=== PATIENT | male | born 1960 | race African-American/Black ===

== ENCOUNTER 2016-12-02 20:49 | Emergency (ER) | payer MEDICAID ==
[~2016-12-02] VITALS: Ht 167.6 cm; Wt 68.0 kg
[2016-12-02 21:45] LABS: BASOPHILS % 1.1 % (0.0-2.0); EOSINOPHILS % 12.7 % (0.0-5.0); HEMATOCRIT. 29.7 % (42.0-52.0); LYMPHOCYTES % 36.6 % (20.0-50.0); MEAN CORPUSCULAR HEMOGLOBIN 31.3 pg (28.0-32.0); MEAN CORPUSCULAR HGB CONC 33.7 g/dL (31.0-37.0); MEAN CORPUSCULAR VOLUME 92.7 fL (80.0-94.0); MEAN PLATELET VOLUME 7.3 fl (7.4-10.4); MONOCYTES % 7.4 % (2.0-8.0); NEUTROPHILS % 42.2 % (40.0-76.0); PLATELET 271 x1000/uL (130-400); RED CELL DISTRIBUTION WIDTH 21.6 % (11.6-14.6); WHITE BLOOD COUNT 4.1 x1000/uL (4.5-11.0)
[2016-12-02 21:48] LABS: INR 1.2; PROTHROMBIN TIME 12.3 sec
[2016-12-02 21:54] LABS: ACETAMINOPHEN < 2 ug/mL (10-30); ALANINE AMINOTRANSFERASE 24 IU/L (13-61); ALBUMIN 3.5 g/dL (3.4-5.0); ANION GAP 15; CALCIUM 8.6 mg/dL (8.5-10.1); CARBON DIOXIDE 24 mEq/L (21-32); CHLORIDE 102 mEq/L (98-107); ETHANOL BLOOD 194 mg/dL; INDEX HEMOLYSI 1 (1-3); INDEX ICTERIC 1 (1-4); INDEX LIPEMIC 1 (1-3); UREA NITROGEN BLOOD 6 mg/dL (7-21); eGFR > 60 mL/min (>60)
[2016-12-02 22:04] LABS: CLARITY URINE CLEAR (CLEAR); COLOR URINE YELLOW (YELLOW); GLUCOSE URINE NEGATIVE (NEGATIVE); KETONES URINE NEGATIVE (NEGATIVE); LEUKOCYTE ESTERASE URINE NEGATIVE (NEGATIVE); NITRITE URINE NEGATIVE (NEGATIVE); OCCULT BLOOD URINE NEGATIVE (NEGATIVE); PH URINE 5.5 (4.5-8.0); PROTEIN URINE NEGATIVE (NEGATIVE); SPECIFIC GRAVITY URINE 1.006 (1.005-1.030)
[2016-12-02 22:17] LABS: *AMPHETAMINES SCREEN URINE NEGATIVE (NEGATIVE); *BARBITURATES SCREEN URINE NEGATIVE (NEGATIVE); *BENZODIAZEPINES SCREEN URINE NEGATIVE (NEGATIVE); *COCAINE SCREEN URINE NEGATIVE (NEGATIVE); CANNABINOID URINE SCREEN NEGATIVE (NEGATIVE); ECSTASY MDMA SCREEN URINE NEGATIVE (NEGATIVE); METHADONE URINE SCREEN NEGATIVE (NEGATIVE); OPIATES URINE SCREEN NEGATIVE (NEGATIVE); PHENCYCLIDINE URINE SCREEN NEGATIVE (NEGATIVE)
[2016-12-03 02:22] VITALS: BP 120/66
== END 2016-12-03 06:51 | disposition home or self-care (01) ==
LOC: ER 20:49
DX: T51.91XA Toxic effect of unspecified alcohol, accidental (unintentional), initial encounter (principal); I10 Essential (primary) hypertension; Z88.5 Allergy status to narcotic agent; Z88.0 Allergy status to penicillin; Y92.89 Other specified places as the place of occurrence of the external cause
CPT/HCPCS: 36415; 70450; 80053; 80305; 80307; 80329; 81003; 82962; 85025; 85610; 99285; G0482; Z7610

== ENCOUNTER 2017-06-24 07:37 | Emergency (ER) | payer MEDICAID ==
[~2017-06-24] VITALS: Ht 180.3 cm; Wt 80.0 kg
[2017-06-24] MEDS ORDERED: LEVETIRACETAM 500MG PREMIX 100 ML IV ONE (08:15)
[2017-06-24 08:20] LABS: BASOPHILS % 0.7 % (0.0-2.0); EOSINOPHILS % 0.7 % (0.0-5.0); HEMATOCRIT. 36.6 % (42.0-52.0); HEMOGLOBIN. 12.2 g/dL (14.0-18.0); LYMPHOCYTES % 25.3 % (20.0-50.0); MEAN CORPUSCULAR HEMOGLOBIN 32.2 pg (28.0-32.0); MEAN PLATELET VOLUME 7.8 fl (7.4-10.4); MONOCYTES % 2.7 % (2.0-8.0); NEUTROPHILS % 70.6 % (40.0-76.0); PLATELET 116 x1000/uL (130-400); RED BLOOD CELL COUNT 3.77 mill/uL (4.7-6.1)
[2017-06-24 08:27] LABS: CHLORIDE 90 mEq/L (98-107)
[2017-06-24 08:36] LABS: ETHANOL BLOOD 12 mg/dL
[2017-06-24 08:37] LABS: CARBON DIOXIDE 7 mEq/L (21-32)
[2017-06-24 08:38] LABS: AMMONIA 236 uMol/L (<32)
[2017-06-24 09:01] LABS: CLARITY URINE CLEAR (CLEAR); COLOR URINE YELLOW (YELLOW); GLUCOSE URINE NEGATIVE (NEGATIVE); KETONES URINE NEGATIVE (NEGATIVE); LEUKOCYTE ESTERASE URINE NEGATIVE (NEGATIVE); NITRITE URINE NEGATIVE (NEGATIVE); OCCULT BLOOD URINE 1+ (NEGATIVE); PROTEIN URINE 1+ (NEGATIVE); SPECIFIC GRAVITY URINE 1.015 (1.005-1.030)
[2017-06-24 09:20] LABS: *AMPHETAMINES SCREEN URINE NEGATIVE (NEGATIVE); *BARBITURATES SCREEN URINE NEGATIVE (NEGATIVE); *BENZODIAZEPINES SCREEN URINE NEGATIVE (NEGATIVE); *COCAINE SCREEN URINE NEGATIVE (NEGATIVE); CANNABINOID URINE SCREEN NEGATIVE (NEGATIVE); METHADONE URINE SCREEN NEGATIVE (NEGATIVE); OPIATES URINE SCREEN NEGATIVE (NEGATIVE); PHENCYCLIDINE URINE SCREEN NEGATIVE (NEGATIVE)
[2017-06-24] MEDS ORDERED: POTASSIUM CHLORIDE 20MEQ TABLET SR PO ONE (09:45)
[2017-06-24 14:15] VITALS: BP 139/93
== END 2017-06-24 14:25 | disposition home or self-care (01) ==
LOC: ER 07:50
DX: G40.909 Epilepsy, unspecified, not intractable, without status epilepticus (principal); K74.60 Unspecified cirrhosis of liver; I10 Essential (primary) hypertension; Z88.0 Allergy status to penicillin; Z88.6 Allergy status to analgesic agent; Z98.890 Other specified postprocedural states
CPT/HCPCS: 36415; 76705; 80053; 80305; 81001; 82140; 85025; 93005; 96365; 99285; G0482; J1953; Z7610

== ENCOUNTER 2017-08-06 19:54 | Emergency (ER) | payer MEDICAID, OTHER ==
[~2017-08-06] VITALS: Ht 172.7 cm; Wt 72.0 kg
[2017-08-06] MEDS ORDERED: LEVETIRACETAM 1,000 MG in SODIUM CHLORIDE 0.9% 100 ML IV ONE (23:00)
[2017-08-06 23:08] LABS: BASOPHILS % 1.7 % (0.0-2.0); EOSINOPHILS % 4.9 % (0.0-5.0); HEMATOCRIT. 28.4 % (42.0-52.0); HEMOGLOBIN. 9.5 g/dL (14.0-18.0); LYMPHOCYTES % 37.6 % (20.0-50.0); MEAN CORPUSCULAR HEMOGLOBIN 29.3 pg (28.0-32.0); MEAN CORPUSCULAR VOLUME 87.8 fL (80.0-94.0); MEAN PLATELET VOLUME 6.7 fl (7.4-10.4); NEUTROPHILS % 48.8 % (40.0-76.0); PLATELET 458 x1000/uL (130-400); RED BLOOD CELL COUNT 3.24 mill/uL (4.7-6.1); RED CELL DISTRIBUTION WIDTH 19.5 % (11.6-14.6)
[2017-08-06 23:30] LABS: CARBON DIOXIDE 25 mEq/L (21-32); CHLORIDE 102 mEq/L (98-107); ETHANOL BLOOD 277 mg/dL
[2017-08-06 23:32] LABS: CARBAMAZEPINE < 0.5 ug/mL (4-12); VALPROIC ACID < 3.0 ug/mL (50-100)
[2017-08-06 23:43] LABS: CLARITY URINE CLEAR (CLEAR); COLOR URINE YELLOW (YELLOW); KETONES URINE NEGATIVE (NEGATIVE); LEUKOCYTE ESTERASE URINE NEGATIVE (NEGATIVE); NITRITE URINE NEGATIVE (NEGATIVE); OCCULT BLOOD URINE NEGATIVE (NEGATIVE); PH URINE 5.5 (4.5-8.0); PROTEIN URINE NEGATIVE (NEGATIVE); SPECIFIC GRAVITY URINE 1.008 (1.005-1.030); UROBILINOGEN URINE 0.2 E.U./dL (0.2-1.0)
[2017-08-06 23:53] LABS: *AMPHETAMINES SCREEN URINE NEGATIVE (NEGATIVE); *BARBITURATES SCREEN URINE NEGATIVE (NEGATIVE); *BENZODIAZEPINES SCREEN URINE NEGATIVE (NEGATIVE); *COCAINE SCREEN URINE NEGATIVE (NEGATIVE); CANNABINOID URINE SCREEN NEGATIVE (NEGATIVE); METHADONE URINE SCREEN NEGATIVE (NEGATIVE); OPIATES URINE SCREEN NEGATIVE (NEGATIVE); PHENCYCLIDINE URINE SCREEN NEGATIVE (NEGATIVE)
[2017-08-07] MEDS ORDERED: TETANUS, DIPHTHERIA, PERTUSSIS VAC/PF 0.5ML (>7YR OLD) IM ONE (00:45)
[2017-08-07 02:02] VITALS: BP 100/61
== END 2017-08-07 02:04 | disposition home or self-care (01) ==
LOC: ER 20:25 → CANBEDREQ 08-07 06:34
DX: S00.511A Abrasion of lip, initial encounter (principal); F10.129 Alcohol abuse with intoxication, unspecified; H57.8 Other specified disorders of eye and adnexa; I10 Essential (primary) hypertension; R56.9 Unspecified convulsions; R07.9 Chest pain, unspecified; E05.90 Thyrotoxicosis, unspecified without thyrotoxic crisis or storm; Z88.0 Allergy status to penicillin; Z88.5 Allergy status to narcotic agent; Z91.14 Patient's other noncompliance with medication regimen; Z98.890 Other specified postprocedural states; X58.XXXA Exposure to other specified factors, initial encounter; Y93.89 Activity, other specified; Y92.89 Other specified places as the place of occurrence of the external cause; Y99.8 Other external cause status
CPT/HCPCS: 36415; 70450; 71020; 72125; 80053; 80156; 80165; 80185; 80305; 81003; 82542; 82962; 84443; 85025; 96365; 99285; G0482; J1953; Z7610; J7050

== ENCOUNTER 2017-11-25 11:15 | Emergency (ER) | payer OTHER ==
[~2017-11-25] VITALS: Ht 172.7 cm; Wt 64.0 kg
[2017-11-25] MEDS ORDERED: SODIUM CHLORIDE 0.9% 1,000 ML IV ONE ×2 (12:01→14:07)
[2017-11-25 13:07] LABS: CHLORIDE 99 mEq/L (98-107)
[2017-11-25 13:08] LABS: HEMOGLOBIN. 9.2 g/dL (14.0-18.0); MEAN CORPUSCULAR HEMOGLOBIN 33.9 pg (28.0-32.0); MEAN CORPUSCULAR VOLUME 102.8 fL (80.0-94.0); MEAN PLATELET VOLUME 8.9 fl (7.4-10.4); PLATELET 146 x1000/uL (130-400); RED BLOOD CELL COUNT 2.72 mill/uL (4.7-6.1); RED CELL DISTRIBUTION WIDTH 17.4 % (11.6-14.6)
[2017-11-25 13:09] LABS: INR 1.6; PROTHROMBIN TIME 16.9 sec (9.4-11.6)
[2017-11-25 13:51] LABS: PLATELET ESTIMATE NORMAL
[2017-11-25] MEDS ORDERED: POTASSIUM CHLORIDE 20MEQ TABLET SR PO NR (13:55)
[2017-11-25 18:11] VITALS: BP 115/82
== END 2017-11-25 18:16 | disposition home or self-care (01) ==
LOC: ER 11:29
DX: S01.81XA Laceration without foreign body of other part of head, initial encounter (principal); R55 Syncope and collapse; E86.0 Dehydration; I10 Essential (primary) hypertension; R56.9 Unspecified convulsions; D72.819 Decreased white blood cell count, unspecified; D53.9 Nutritional anemia, unspecified; Z88.0 Allergy status to penicillin; Z88.5 Allergy status to narcotic agent; X58.XXXA Exposure to other specified factors, initial encounter; Y93.89 Activity, other specified; Y92.89 Other specified places as the place of occurrence of the external cause; Y99.8 Other external cause status
CPT/HCPCS: 36415; 70450; 71045; 80053; 84484; 85025; 85610; 93005; 96360; 96361; 99285; J7030

== ENCOUNTER 2018-02-17 23:53 | Emergency (ER) | payer OTHER ==
[~2018-02-17] VITALS: Ht 175.3 cm; Wt 66.0 kg
[2018-02-18 02:16] LABS: EOSINOPHILS % 3.6 % (0.0-5.0); HEMATOCRIT. 29.3 % (42.0-52.0); HEMOGLOBIN. 10.1 g/dL (14.0-18.0); LYMPHOCYTES % 45.2 % (20.0-50.0); MEAN CORPUSCULAR HEMOGLOBIN 32.8 pg (28.0-32.0); MEAN CORPUSCULAR VOLUME 95.1 fL (80.0-94.0); MONOCYTES % 7.8 % (2.0-8.0); NEUTROPHILS % 42.4 % (40.0-76.0); PLATELET 158 x1000/uL (130-400); RED BLOOD CELL COUNT 3.08 mill/uL (4.7-6.1)
[2018-02-18 02:20] LABS: INR 1.3; PROTHROMBIN TIME 13.4 sec (9.4-11.6)
[2018-02-18 02:29] LABS: CHLORIDE 102 mEq/L (98-107)
[2018-02-18 02:49] LABS: ETHANOL BLOOD 356 mg/dL
[2018-02-18] MEDS ORDERED: CHLORDIAZEPOXIDE 25MG CAPSULE PO ONE (05:30)
[2018-02-18 05:56] VITALS: BP 124/68
== END 2018-02-18 05:58 | disposition home or self-care (01) ==
LOC: ER 23:53
DX: S09.8XXA Other specified injuries of head, initial encounter (principal); T51.91XA Toxic effect of unspecified alcohol, accidental (unintentional), initial encounter; I10 Essential (primary) hypertension; R56.9 Unspecified convulsions; W01.0XXA Fall on same level from slipping, tripping and stumbling without subsequent striking against object, initial encounter; Y93.9 Activity, unspecified; Y92.9 Unspecified place or not applicable; Z88.5 Allergy status to narcotic agent; Z88.0 Allergy status to penicillin
CPT/HCPCS: 36415; 70450; 80053; 85025; 85610; 99285; G0482

== ENCOUNTER 2018-03-12 01:39 | Emergency (ER) | payer OTHER ==
[~2018-03-12] VITALS: Ht 177.8 cm; Wt 68.2 kg
[2018-03-12] MEDS ORDERED: SODIUM CHLORIDE 0.9% 1,000 ML IV ONE (03:22)
[2018-03-12] MEDS ORDERED: ONDANSETRON HCL 4MG/2ML VIAL IV STA (03:22)
[2018-03-12] MEDS ORDERED: LEVETIRACETAM 500MG PREMIX 100 ML IV ONE (03:30)
[2018-03-12 03:50] LABS: BASOPHILS % 2.2 % (0.0-2.0); EOSINOPHILS % 3.3 % (0.0-5.0); HEMATOCRIT. 35.1 % (42.0-52.0); HEMOGLOBIN. 12.1 g/dL (14.0-18.0); LYMPHOCYTES % 48.4 % (20.0-50.0); MEAN CORPUSCULAR HEMOGLOBIN 32.7 pg (28.0-32.0); MEAN CORPUSCULAR VOLUME 94.8 fL (80.0-94.0); MEAN PLATELET VOLUME 7.2 fl (7.4-10.4); NEUTROPHILS % 39.1 % (40.0-76.0); PLATELET 319 x1000/uL (130-400); RED CELL DISTRIBUTION WIDTH 15.4 % (11.6-14.6)
[2018-03-12 03:54] LABS: CHLORIDE 105 mEq/L (98-107); INR 1.2; PROTHROMBIN TIME 12.4 sec (9.4-11.6)
[2018-03-12 03:59] LABS: AMMONIA 49 uMol/L (<32)
[2018-03-12 04:16] LABS: CARBAMAZEPINE < 0.5 ug/mL (4-12); PHENOBARBITAL < 2.1 ug/mL (15.0-40.0); VALPROIC ACID < 3.0 ug/mL (50-100)
[2018-03-12 04:18] LABS: CLARITY URINE CLEAR (CLEAR); COLOR URINE YELLOW (YELLOW); KETONES URINE NEGATIVE (NEGATIVE); LEUKOCYTE ESTERASE URINE NEGATIVE (NEGATIVE); NITRITE URINE NEGATIVE (NEGATIVE); OCCULT BLOOD URINE NEGATIVE (NEGATIVE); PROTEIN URINE NEGATIVE (NEGATIVE); SPECIFIC GRAVITY URINE 1.004 (1.005-1.030); UROBILINOGEN URINE 0.2 E.U./dL (0.2-1.0)
[2018-03-12 04:19] LABS: ETHANOL BLOOD 400 mg/dL
[2018-03-12 04:43] LABS: *AMPHETAMINES SCREEN URINE NEGATIVE (NEGATIVE); *COCAINE SCREEN URINE NEGATIVE (NEGATIVE); CANNABINOID URINE SCREEN NEGATIVE (NEGATIVE); METHADONE URINE SCREEN NEGATIVE (NEGATIVE); OPIATES URINE SCREEN NEGATIVE (NEGATIVE); PHENCYCLIDINE URINE SCREEN NEGATIVE (NEGATIVE)
[2018-03-12 04:45] LABS: *BARBITURATES SCREEN URINE NEGATIVE (NEGATIVE); *BENZODIAZEPINES SCREEN URINE NEGATIVE (NEGATIVE)
[2018-03-12 10:40] VITALS: BP 111/78
== END 2018-03-12 13:38 | disposition home or self-care (01) ==
LOC: ER 01:39
DX: G92 Toxic encephalopathy (principal); T51.0X1A Toxic effect of ethanol, accidental (unintentional), initial encounter; I10 Essential (primary) hypertension; Z88.6 Allergy status to analgesic agent; Z88.0 Allergy status to penicillin; Y90.8 Blood alcohol level of 240 mg/100 ml or more; Y92.89 Other specified places as the place of occurrence of the external cause
CPT/HCPCS: 36415; 73502; 80053; 80156; 80165; 80184; 80185; 80305; 81003; 82140; 84443; 84484; 85025; 85610; 93005; 96365; 96375; 99285; G0482; J1953; J2405; J7030; Z7610

== ENCOUNTER 2018-03-13 16:59 | Emergency (ER) | payer OTHER ==
[~2018-03-13] VITALS: Ht 182.9 cm; Wt 68.2 kg
[2018-03-13] MEDS ORDERED: ACETAMINOPHEN 325MG TABLET PO ONE (18:45)
[2018-03-13 18:55] VITALS: BP 108/70
== END 2018-03-13 19:07 | disposition home or self-care (01) ==
LOC: ER 16:59
DX: S39.012A Strain of muscle, fascia and tendon of lower back, initial encounter (principal); I10 Essential (primary) hypertension; G40.909 Epilepsy, unspecified, not intractable, without status epilepticus; F10.129 Alcohol abuse with intoxication, unspecified; Y90.9 Presence of alcohol in blood, level not specified; Z88.0 Allergy status to penicillin; Z88.5 Allergy status to narcotic agent; W01.0XXA Fall on same level from slipping, tripping and stumbling without subsequent striking against object, initial encounter; Y93.89 Activity, other specified; Y92.018 Other place in single-family (private) house as the place of occurrence of the external cause
CPT/HCPCS: 99283

== ENCOUNTER 2018-05-15 00:37 | Emergency (ER) | payer MEDICAID, OTHER ==
[~2018-05-15] VITALS: Ht 172.7 cm; Wt 68.0 kg
[2018-05-15] MEDS ORDERED: ONDANSETRON HCL 4MG/2ML INJ IV STA (01:50)
[2018-05-15] MEDS ORDERED: SODIUM CHLORIDE 0.9% 1,000 ML IV ONE (01:50)
[2018-05-15] MEDS ORDERED: LORAZEPAM 2MG/ML CPJ IV ONE (02:00)
[2018-05-15] MEDS ORDERED: LEVETIRACETAM 500MG PREMIX 100 ML IV ONE (02:00)
[2018-05-15 03:18] LABS: BASOPHILS % 2.2 % (0.0-2.0); EOSINOPHILS % 1.5 % (0.0-5.0); HEMATOCRIT. 33.9 % (42.0-52.0); HEMOGLOBIN. 11.8 g/dL (14.0-18.0); LYMPHOCYTES % 48.3 % (20.0-50.0); MEAN CORPUSCULAR HEMOGLOBIN 32.8 pg (28.0-32.0); MEAN CORPUSCULAR VOLUME 94.6 fL (80.0-94.0); MEAN PLATELET VOLUME 7.2 fl (7.4-10.4); MONOCYTES % 8.1 % (2.0-8.0); NEUTROPHILS % 39.9 % (40.0-76.0); PLATELET 228 x1000/uL (130-400); RED BLOOD CELL COUNT 3.59 mill/uL (4.7-6.1); RED CELL DISTRIBUTION WIDTH 13.9 % (11.6-14.6)
[2018-05-15 03:24] LABS: *AMPHETAMINES SCREEN URINE NEGATIVE (NEGATIVE); *BARBITURATES SCREEN URINE NEGATIVE (NEGATIVE); *BENZODIAZEPINES SCREEN URINE NEGATIVE (NEGATIVE); CANNABINOID URINE SCREEN NEGATIVE (NEGATIVE); METHADONE URINE SCREEN NEGATIVE (NEGATIVE); OPIATES URINE SCREEN NEGATIVE (NEGATIVE); PHENCYCLIDINE URINE SCREEN NEGATIVE (NEGATIVE)
[2018-05-15 03:25] LABS: *COCAINE SCREEN URINE NEGATIVE (NEGATIVE)
[2018-05-15 03:27] LABS: CHLORIDE 104 mEq/L (98-107)
[2018-05-15 03:31] LABS: ETHANOL BLOOD 298 mg/dL
[2018-05-15] MEDS ORDERED: PHENYTOIN SODIUM 500 MG in SODIUM CHLORIDE 0.9% 50 ML IV ONE (04:15)
[2018-05-15 12:00] VITALS: BP 118/85
== END 2018-05-15 12:41 | disposition home or self-care (01) ==
LOC: ER 00:37
DX: G40.909 Epilepsy, unspecified, not intractable, without status epilepticus (principal); F10.129 Alcohol abuse with intoxication, unspecified; I10 Essential (primary) hypertension; F17.200 Nicotine dependence, unspecified, uncomplicated; R94.31 Abnormal electrocardiogram [ECG] [EKG]; Z88.0 Allergy status to penicillin; Z88.5 Allergy status to narcotic agent; Y90.8 Blood alcohol level of 240 mg/100 ml or more
CPT/HCPCS: 36415; 70450; 71045; 80053; 80185; 80305; 85025; 93005; 96365; 96367; 96375; 99285; G0482; J1165; J1953; J2060; J2405; J7030; Z7610

== ENCOUNTER 2018-12-14 09:14 | Emergency (ER) | payer MEDICAID, OTHER ==
[~2018-12-14] VITALS: Ht 177.8 cm; Wt 56.0 kg
[2018-12-14] MEDS ORDERED: LEVETIRACETAM 1000MG/100ML 100 ML IV ONE (10:00)
[2018-12-14 10:06] LABS: BASOPHILS % 0.8 % (0.0-2.0); EOSINOPHILS % 0.4 % (0.0-5.0); HEMATOCRIT. 36.6 % (42.0-52.0); HEMOGLOBIN. 12.4 g/dL (14.0-18.0); LYMPHOCYTES % 27.3 % (20.0-50.0); MEAN CORPUSCULAR HEMOGLOBIN 31.9 pg (28.0-32.0); MEAN CORPUSCULAR VOLUME 93.8 fL (80.0-94.0); MEAN PLATELET VOLUME 7.9 fl (7.4-10.4); MONOCYTES % 4.8 % (2.0-8.0); NEUTROPHILS % 66.7 % (40.0-76.0); PLATELET 137 x1000/uL (130-400); RED CELL DISTRIBUTION WIDTH 15.6 % (11.6-14.6)
[2018-12-14 10:11] LABS: CHLORIDE 96 mEq/L (98-107)
[2018-12-14 10:15] LABS: ETHANOL BLOOD < 10 mg/dL
[2018-12-14 13:20] VITALS: BP 135/82
[2018-12-14 15:38] LABS: CLARITY URINE CLEAR (CLEAR); COLOR URINE YELLOW (YELLOW); KETONES URINE 3+ (NEGATIVE); LEUKOCYTE ESTERASE URINE TRACE (NEGATIVE); NITRITE URINE NEGATIVE (NEGATIVE); OCCULT BLOOD URINE 1+ (NEGATIVE); PROTEIN URINE 1+ (NEGATIVE); SPECIFIC GRAVITY URINE 1.023 (1.005-1.030); UROBILINOGEN URINE 0.2 E.U./dL (0.2-1.0)
[2018-12-14 15:49] LABS: *AMPHETAMINES SCREEN URINE NEGATIVE (NEGATIVE); *BARBITURATES SCREEN URINE NEGATIVE (NEGATIVE); *COCAINE SCREEN URINE PRESUMTIVE POSITIVE (NEGATIVE); CANNABINOID URINE SCREEN NEGATIVE (NEGATIVE); METHADONE URINE SCREEN NEGATIVE (NEGATIVE); OPIATES URINE SCREEN NEGATIVE (NEGATIVE); PHENCYCLIDINE URINE SCREEN NEGATIVE (NEGATIVE)
[2018-12-14 15:51] LABS: *BENZODIAZEPINES SCREEN URINE NEGATIVE (NEGATIVE)
== END 2018-12-14 13:45 | disposition home or self-care (01) ==
LOC: ER 09:14
DX: S00.511A Abrasion of lip, initial encounter (principal); R56.9 Unspecified convulsions; I10 Essential (primary) hypertension; Z98.890 Other specified postprocedural states; Z88.6 Allergy status to analgesic agent; X58.XXXA Exposure to other specified factors, initial encounter; Y93.89 Activity, other specified; Y92.89 Other specified places as the place of occurrence of the external cause; Y99.8 Other external cause status
CPT/HCPCS: 36415; 71045; 80053; 80305; 80320; 81003; 85025; 96365; 99284; J1953; G0480

== ENCOUNTER 2019-11-09 20:52 | Emergency (ER) | payer MEDICAID ==
[~2019-11-09] VITALS: Ht 172.7 cm; Wt 68.0 kg
[2019-11-09] MEDS ORDERED: SODIUM CHLORIDE 0.9% 1,000 ML IV ONE (21:22)
[2019-11-09] MEDS ORDERED: LEVETIRACETAM 500MG PREMIX 100 ML IV ONE (21:30)
[2019-11-09 21:58] LABS: BASOPHILS % 0.4 % (0.0-2.0); EOSINOPHILS % 0.7 % (0.0-5.0); HEMATOCRIT. 33.5 % (42.0-52.0); HEMOGLOBIN. 11.8 g/dL (14.0-18.0); LYMPHOCYTES % 24.5 % (20.0-50.0); MEAN CORPUSCULAR HEMOGLOBIN 32.8 pg (28.0-32.0); MEAN CORPUSCULAR VOLUME 93.2 fL (80.0-94.0); MEAN PLATELET VOLUME 8.8 fl (7.4-10.4); MONOCYTES % 3.1 % (2.0-8.0); NEUTROPHILS % 71.3 % (40.0-76.0); PLATELET 83 x1000/uL (130-400); RED BLOOD CELL COUNT 3.59 mill/uL (4.7-6.1); RED CELL DISTRIBUTION WIDTH 16.2 % (11.6-14.6)
[2019-11-09 22:00] LABS: CHLORIDE 99 mEq/L (98-107)
[2019-11-09 22:04] LABS: ETHANOL BLOOD < 10 mg/dL
[2019-11-09 22:14] LABS: CARBAMAZEPINE < 0.5 ug/mL (4-12); PHENOBARBITAL < 2.1 ug/mL (15.0-40.0); VALPROIC ACID < 3.0 ug/mL (50-100)
[2019-11-09] MEDS ORDERED: ONDANSETRON 4MG ODT PO ONE (22:45)
[2019-11-10 01:33] LABS: CLARITY URINE CLEAR (CLEAR); COLOR URINE YELLOW (YELLOW); KETONES URINE TRACE (NEGATIVE); LEUKOCYTE ESTERASE URINE NEGATIVE (NEGATIVE); NITRITE URINE NEGATIVE (NEGATIVE); OCCULT BLOOD URINE 1+ (NEGATIVE); PROTEIN URINE 2+ (NEGATIVE); SPECIFIC GRAVITY URINE 1.021 (1.005-1.030)
[2019-11-10 01:44] LABS: *AMPHETAMINES SCREEN URINE NEGATIVE (NEGATIVE); *BARBITURATES SCREEN URINE NEGATIVE (NEGATIVE); *BENZODIAZEPINES SCREEN URINE NEGATIVE (NEGATIVE)
[2019-11-10 01:45] LABS: *COCAINE SCREEN URINE NEGATIVE (NEGATIVE); CANNABINOID URINE SCREEN NEGATIVE (NEGATIVE); METHADONE URINE SCREEN NEGATIVE (NEGATIVE); OPIATES URINE SCREEN NEGATIVE (NEGATIVE); PHENCYCLIDINE URINE SCREEN NEGATIVE (NEGATIVE)
[2019-11-10 04:18] VITALS: BP 128/74
== END 2019-11-10 04:20 | disposition home or self-care (01) ==
LOC: ER 20:52
DX: G40.909 Epilepsy, unspecified, not intractable, without status epilepticus (principal); I10 Essential (primary) hypertension; Z91.14 Patient's other noncompliance with medication regimen; Z88.5 Allergy status to narcotic agent; Z88.0 Allergy status to penicillin
CPT/HCPCS: 36415; 70450; 71045; 80053; 80156; 80165; 80184; 80185; 80305; 80320; 81003; 82140; 82962; 84443; 85025; 93005; 96365; 99285; J1953; J7030; Q0162; G0480

== ENCOUNTER 2020-01-03 12:11 | Emergency (ER) | payer MEDICAID ==
[~2020-01-03] VITALS: Ht 172.7 cm; Wt 70.0 kg
[2020-01-03 12:14] VITALS: BP 114/87
== END 2020-01-03 13:20 | disposition left against medical advice (07) ==
LOC: ER 12:11
DX: Z53.21 Procedure and treatment not carried out due to patient leaving prior to being seen by health care provider (principal)
CPT/HCPCS: 99283

== ENCOUNTER 2020-01-03 13:47 | Inpatient (IN) | payer MEDICAID ==
[~2020-01-03] VITALS: Ht 177.8 cm; Wt 58.5 kg
[2020-01-03] MEDS ORDERED: LEVETIRACETAM 500MG PREMIX 100 ML IV ONE (14:45)
[2020-01-03 15:47] LABS: CHLORIDE 102 mEq/L (98-107)
[2020-01-03 15:48] LABS: HEMATOCRIT. 30.3 % (42.0-52.0); HEMOGLOBIN. 9.9 g/dL (14.0-18.0); MEAN CORPUSCULAR HEMOGLOBIN 32.4 pg (28.0-32.0); MEAN CORPUSCULAR VOLUME 98.7 fL (80.0-94.0); PLATELET 161 x1000/uL (130-400); RED BLOOD CELL COUNT 3.07 mill/uL (4.7-6.1); RED CELL DISTRIBUTION WIDTH 17.6 % (11.6-14.6)
[2020-01-03 15:53] LABS: ETHANOL BLOOD 280 mg/dL
[2020-01-03 16:30] LABS: PLATELET ESTIMATE NORMAL
[2020-01-03] MEDS ORDERED: PIPERACILLIN/TAZ 3.375G PREMIX 50 ML IV ONE (18:15)
[2020-01-03 19:26] LABS: CLARITY URINE CLEAR (CLEAR); COLOR URINE DARK YELLOW (YELLOW); KETONES URINE NEGATIVE (NEGATIVE); LEUKOCYTE ESTERASE URINE NEGATIVE (NEGATIVE); NITRITE URINE NEGATIVE (NEGATIVE); OCCULT BLOOD URINE NEGATIVE (NEGATIVE); PH URINE 5.5 (4.5-8.0); PROTEIN URINE NEGATIVE (NEGATIVE); SPECIFIC GRAVITY URINE 1.014 (1.005-1.030)
[2020-01-03 19:43] LABS: *AMPHETAMINES SCREEN URINE NEGATIVE (NEGATIVE); *BARBITURATES SCREEN URINE NEGATIVE (NEGATIVE); *BENZODIAZEPINES SCREEN URINE NEGATIVE (NEGATIVE); *COCAINE SCREEN URINE NEGATIVE (NEGATIVE); METHADONE URINE SCREEN NEGATIVE (NEGATIVE)
[2020-01-03 19:45] LABS: CANNABINOID URINE SCREEN NEGATIVE (NEGATIVE); OPIATES URINE SCREEN NEGATIVE (NEGATIVE); PHENCYCLIDINE URINE SCREEN NEGATIVE (NEGATIVE)
[2020-01-03] MEDS ORDERED: ONDANSETRON HCL 4MG/2ML INJ IV PRN (20:30)
[2020-01-03] MEDS ORDERED: LORAZEPAM 2MG/ML CPJ IV PRN (20:30)
[2020-01-03 21:09] LABS: INR 1.5; PROTHROMBIN TIME 16.6 sec (9.6-11.0)
[2020-01-03] MEDS ORDERED: POTASSIUM CHLORIDE 20MEQ TABLET SR PO SCH (21:20)
[2020-01-03 21:31] LABS: HEPATITIS B SURFACE ANTIGEN NEGATIVE
[2020-01-03 22:01] LABS: HEPATITIS A AB IGM NEGATIVE (NEGATIVE)
[2020-01-03 22:30] VITALS: BP 122/85
[2020-01-03] MEDS ORDERED: ACETAMINOPHEN 325MG TABLET PO PRN (22:30)
[2020-01-03] MEDS: CHLORDIAZEPOXIDE 25MG CAPSULE PO SCH (22:37)
[2020-01-03] MEDS ORDERED: FOLIC ACID 1 MG, THIAMINE HCL 100 MG, MVI, ADULT NO.1 10 ML in DEXTROSE 5% WATER 1,000 ML IV SCH ×4 (23:00)
[2020-01-04] VITALS: BP 109/76
[2020-01-04 04:00] VITALS: BP 119/81
[2020-01-04] MEDS: CHLORDIAZEPOXIDE 25MG CAPSULE PO SCH ×3 (05:46→21:00)
[2020-01-04 06:41] LABS: CHLORIDE 98 mEq/L (98-107)
[2020-01-04 08:00] VITALS: BP 122/88
[2020-01-04 12:00] VITALS: BP 112/82
[2020-01-04] MEDS: CEFEPIME 1,000 MG in DEXTROSE 5% WATER 50 ML IV SCH ×2 (15:09→20:45)
[2020-01-04 16:00] VITALS: BP 126/83
[2020-01-04] MEDS: METRONIDAZOLE 500 MG PREMIX 100 ML IV SCH ×2 (17:08→21:03)
[2020-01-04 20:00] VITALS: BP 106/79
[2020-01-04] MEDS: FOLIC ACID 1 MG, THIAMINE HCL 100 MG, MVI, ADULT NO.1 10 ML in DEXTROSE 5% WATER 1,000 ML IV SCH ×4 (21:19)
[2020-01-05] VITALS: BP 119/76
[2020-01-05 04:00] VITALS: BP 110/77
[2020-01-05] MEDS: CHLORDIAZEPOXIDE 25MG CAPSULE PO SCH ×3 (05:24→22:52)
[2020-01-05] MEDS: METRONIDAZOLE 500 MG PREMIX 100 ML IV SCH ×3 (05:24→22:53)
[2020-01-05 07:05] LABS: HEMATOCRIT 25.7 % (42.0-52.0); HEMOGLOBIN 8.7 g/dL (14.0-18.0); MEAN CORPUSCULAR HEMOGLOBIN 33.9 pg (28.0-32.0); MEAN CORPUSCULAR VOLUME 100.2 fL (80.0-94.0); PLATELET 106 x1000/uL (130-400); RED BLOOD CELL COUNT 2.57 mill/uL (4.7-6.1)
[2020-01-05 07:33] LABS: CHLORIDE 94 mEq/L (98-107)
[2020-01-05 07:39] LABS: TOTAL IRON BINDING CAPACITY 188 ug/dL (250-450)
[2020-01-05 07:50] LABS: FOLIC ACID (FOLATE) SERUM >20 ng/mL ng/mL (>5.38)
[2020-01-05 08:00] VITALS: BP 101/71
[2020-01-05 08:00] LABS: VITAMIN B12 SERUM 1184 pg/mL (211-911)
[2020-01-05 08:17] LABS: FERRITIN 3037 ng/mL (22-322)
[2020-01-05] MEDS ORDERED: POTASSIUM CHLORIDE 20MEQ TABLET SR PO NR (08:30)
[2020-01-05] MEDS: CEFEPIME 1,000 MG in DEXTROSE 5% WATER 50 ML IV SCH ×2 (08:31→22:52)
[2020-01-05] MEDS ORDERED: THIA100T88 MT (08:41)
[2020-01-05] MEDS ORDERED: LACT10SO7 MT (08:41)
[2020-01-05] MEDS ORDERED: LEVO500T2 MT (08:41)
[2020-01-05] MEDS ORDERED: FOLI-43 MT (08:41)
[2020-01-05 12:00] VITALS: BP 94/65
[2020-01-05 16:00] VITALS: BP 100/71
[2020-01-05] MEDS: LACTULOSE 20G/30ML UDC PO SCH (18:17)
[2020-01-05 20:00] VITALS: BP 100/76
[2020-01-06] VITALS: BP 93/64
[2020-01-06] MEDS: FOLIC ACID 1 MG, THIAMINE HCL 100 MG, MVI, ADULT NO.1 10 ML in DEXTROSE 5% WATER 1,000 ML IV SCH ×4 (01:22)
[2020-01-06 04:00] VITALS: BP 112/79
[2020-01-06] MEDS: CHLORDIAZEPOXIDE 25MG CAPSULE PO SCH (06:12)
[2020-01-06] MEDS: METRONIDAZOLE 500 MG PREMIX 100 ML IV SCH ×2 (06:12→14:23)
[2020-01-06 08:00] VITALS: BP 89/58
[2020-01-06] MEDS: CEFEPIME 1,000 MG in DEXTROSE 5% WATER 50 ML IV SCH (08:59)
[2020-01-06 12:00] VITALS: BP 87/65
[2020-01-06 16:00] VITALS: BP 98/71
[2020-01-06 16:45] LABS: HEMATOCRIT. 22.7 % (42.0-52.0); HEMOGLOBIN. 7.9 g/dL (14.0-18.0); MEAN CORPUSCULAR HEMOGLOBIN 34.8 pg (28.0-32.0); MEAN PLATELET VOLUME 9.4 fl (7.4-10.4); PLATELET 104 x1000/uL (130-400); RED BLOOD CELL COUNT 2.27 mill/uL (4.7-6.1); RED CELL DISTRIBUTION WIDTH 17.3 % (11.6-14.6)
[2020-01-06 16:51] LABS: CHLORIDE 100 mEq/L (98-107)
[2020-01-06] MEDS ORDERED: POTASSIUM CHLORIDE 20MEQ TABLET SR PO NR (17:13)
[2020-01-06 17:35] LABS: PLATELET ESTIMATE SLIGHTLY DECREASED
[2020-01-06] MEDS ORDERED: MAGNESIUM 4 G PREMIX 100 ML IV NR (18:00)
[2020-01-06] MEDS: LACTULOSE 20G/30ML UDC PO SCH (18:11)
[2020-01-06 20:00] VITALS: BP 107/75
[2020-01-07] VITALS: BP 102/73
[2020-01-07] MEDS: CEFEPIME 1,000 MG in DEXTROSE 5% WATER 50 ML IV SCH ×3 (01:26→21:15)
[2020-01-07] MEDS: METRONIDAZOLE 500 MG PREMIX 100 ML IV SCH ×4 (01:27→22:05)
[2020-01-07 04:00] VITALS: BP 119/79
[2020-01-07 06:48] LABS: HEMOGLOBIN. 7.9 g/dL (14.0-18.0); MEAN CORPUSCULAR HEMOGLOBIN 34.2 pg (28.0-32.0); MEAN CORPUSCULAR VOLUME 99.8 fL (80.0-94.0); MEAN PLATELET VOLUME 9.8 fl (7.4-10.4); PLATELET 118 x1000/uL (130-400); RED BLOOD CELL COUNT 2.31 mill/uL (4.7-6.1); RED CELL DISTRIBUTION WIDTH 17.1 % (11.6-14.6)
[2020-01-07 08:00] VITALS: BP 98/68
[2020-01-07 08:20] LABS: CHLORIDE 102 mEq/L (98-107)
[2020-01-07 08:29] LABS: PHOSPHORUS 1.4 mg/dL (2.5-4.9)
[2020-01-07 12:00] VITALS: BP 90/59
[2020-01-07 13:54] LABS: PLATELET ESTIMATE SLIGHTLY DECREASED
[2020-01-07 16:00] VITALS: BP 94/66
[2020-01-07] MEDS ORDERED: SODIUM PHOS,M-BASIC-D-BASIC 20 MM in DEXT 5% WATER 243.3333 ML IV NR (16:00)
[2020-01-07] MEDS: LACTULOSE 20G/30ML UDC PO SCH (17:28)
[2020-01-07 20:00] VITALS: BP 107/72
[2020-01-08] VITALS: BP 109/72
[2020-01-08 04:00] VITALS: BP 107/78
[2020-01-08] MEDS: METRONIDAZOLE 500MG TABLET PO SCH ×3 (05:48→22:17)
[2020-01-08 08:00] VITALS: BP 108/74
[2020-01-08] MEDS: FOLIC ACID 1MG TABLET PO SCH (08:58)
[2020-01-08] MEDS: THIAMINE HCL 100MG TABLET PO SCH (09:01)
[2020-01-08] MEDS: CEFEPIME 1,000 MG in DEXTROSE 5% WATER 50 ML IV SCH ×2 (09:01→22:16)
[2020-01-08 12:00] VITALS: BP 100/67
[2020-01-08 16:00] VITALS: BP 105/74
[2020-01-08] MEDS: LACTULOSE 20G/30ML UDC PO SCH (18:12)
[2020-01-08 20:00] VITALS: BP 100/67
[2020-01-09] VITALS: BP 108/76
[2020-01-09 04:00] VITALS: BP 104/71
[2020-01-09] MEDS: METRONIDAZOLE 500MG TABLET PO SCH ×2 (05:59→14:00)
[2020-01-09 08:13] VITALS: BP 101/69
[2020-01-09] MEDS: THIAMINE HCL 100MG TABLET PO SCH (08:38)
[2020-01-09] MEDS: FOLIC ACID 1MG TABLET PO SCH (08:38)
[2020-01-09] MEDS: CEFEPIME 1,000 MG in DEXTROSE 5% WATER 50 ML IV SCH (08:38)
[2020-01-09 10:10] LABS: HEMATOCRIT 21.3 % (42.0-52.0); HEMOGLOBIN 7.3 g/dL (14.0-18.0); MEAN CORPUSCULAR HEMOGLOBIN 35.1 pg (28.0-32.0); MEAN CORPUSCULAR VOLUME 102.1 fL (80.0-94.0); PLATELET 157 x1000/uL (130-400); RED BLOOD CELL COUNT 2.09 mill/uL (4.7-6.1); RED CELL DISTRIBUTION WIDTH 18.8 % (11.6-14.6)
[2020-01-09 12:00] VITALS: BP 108/72
[2020-01-09 14:14] VITALS: BP 108/72
== END 2020-01-09 15:05 | disposition home or self-care (01) | DRG 280 ==
LOC: ER 13:47 → 6EST 19:32 → ENRESERV 20:41
PROVIDERS: ADMIT Internal Medicine; ATTEND Internal Medicine
DX: K70.9 Alcoholic liver disease, unspecified (principal); E43 Unspecified severe protein-calorie malnutrition; D68.9 Coagulation defect, unspecified; G90.8 Other disorders of autonomic nervous system; K81.9 Cholecystitis, unspecified; D53.9 Nutritional anemia, unspecified; E87.6 Hypokalemia; G40.909 Epilepsy, unspecified, not intractable, without status epilepticus; I10 Essential (primary) hypertension; K76.0 Fatty (change of) liver, not elsewhere classified; Y90.8 Blood alcohol level of 240 mg/100 ml or more; K82.8 Other specified diseases of gallbladder; F10.229 Alcohol dependence with intoxication, unspecified; D72.819 Decreased white blood cell count, unspecified; Z88.0 Allergy status to penicillin; Z88.5 Allergy status to narcotic agent; Z79.2 Long term (current) use of antibiotics; Z83.3 Family history of diabetes mellitus; Z68.1 Body mass index [BMI] 19.9 or less, adult; Z79.899 Other long term (current) drug therapy; Z71.41 Alcohol abuse counseling and surveillance of alcoholic; Z59.0 Homelessness; Z03.818 Encounter for observation for suspected exposure to other biological agents ruled out
CPT/HCPCS: 36415; 74181; 76705; 80053; 80076; 80305; 80320; 81003; 82140; 82607; 82728; 82746; 83540; 83550; 83735; 84100; 84145; 85025; 85027; 86705; 86709; 86803; 87340; 93005; 97112; 97116; 97162; 99285; J0692; J1953; J2060; J2543; J3411; J3475; J3490; J7060; J7070; G0480; U0003-CS

== ENCOUNTER 2021-04-20 23:01 | Emergency (ER) | payer MEDICAID ==
[~2021-04-20] VITALS: Ht 177.8 cm; Wt 68.0 kg
[~2021-04-20 23:01] MED LIST: FOLI-43 MT; LACT10SO7 MT; THIA100T88 MT
[2021-04-20] MEDS ORDERED: BACITRACIN ZINC OINT UDPKT TOP ONE (23:15)
[2021-04-20] MEDS ORDERED: TETANUS, DIPHTHERIA, PERTUSSIS VAC/PF 0.5ML (>7YR OLD) IM ONE (23:15)
[2021-04-20] MEDS ORDERED: LIDOCAINE HCL/PF 1% 10 MG/ML 5ML VIAL INFIL ONE (23:15)
[2021-04-20 23:33] VITALS: BP 132/80
== END 2021-04-21 02:25 | disposition left against medical advice (07) ==
LOC: ER 23:20
DX: S01.111A Laceration without foreign body of right eyelid and periocular area, initial encounter (principal); F10.229 Alcohol dependence with intoxication, unspecified; I10 Essential (primary) hypertension; F17.290 Nicotine dependence, other tobacco product, uncomplicated; W18.39XA Other fall on same level, initial encounter; Y93.89 Activity, other specified; Y92.89 Other specified places as the place of occurrence of the external cause; Y99.8 Other external cause status; Z88.0 Allergy status to penicillin; Y90.0 Blood alcohol level of less than 20 mg/100 ml
CPT/HCPCS: 12013; 70450; 90715; 99284; J3490

== ENCOUNTER 2021-07-13 21:24 | Emergency (ER) | payer MEDICAID ==
[~2021-07-13] VITALS: Ht 170.2 cm; Wt 60.0 kg
[2021-07-14 01:16] LABS: HEMATOCRIT. 28.2 % (42.0-52.0); HEMOGLOBIN. 8.8 g/dL (14.0-18.0); MEAN CORPUSCULAR HEMOGLOBIN 23.5 pg (28.0-32.0); MEAN PLATELET VOLUME 6.6 fl (7.4-10.4); PLATELET 251 x1000/uL (130-400); RED BLOOD CELL COUNT 3.76 mill/uL (4.7-6.1); RED CELL DISTRIBUTION WIDTH 27.9 % (11.6-14.6)
[2021-07-14 01:21] LABS: CHLORIDE 105 mEq/L (98-107)
[2021-07-14 02:07] LABS: ETHANOL BLOOD 474 mg/dL
[2021-07-14 05:46] LABS: PLATELET ESTIMATE NORMAL
[2021-07-14 09:07] VITALS: BP 126/85
== END 2021-07-14 09:09 | disposition home or self-care (01) ==
LOC: ER 21:24
DX: F10.129 Alcohol abuse with intoxication, unspecified (principal); R07.89 Other chest pain; I10 Essential (primary) hypertension; G40.909 Epilepsy, unspecified, not intractable, without status epilepticus; Y90.8 Blood alcohol level of 240 mg/100 ml or more; Z88.5 Allergy status to narcotic agent; Z88.0 Allergy status to penicillin
CPT/HCPCS: 36415; 71045; 80053; 80320; 85025; 93005; 99285; G0480

== ENCOUNTER 2023-07-11 16:55 | Emergency (ER) | payer MEDICAID ==
[~2023-07-11] VITALS: Ht 175.3 cm; Wt 80.0 kg
[2023-07-11 16:56] VITALS: O2SAT 97
[2023-07-11 23:30] VITALS: BP 121/94; PULSE 117; RESP 18; TEMP 98.6
== END 2023-07-11 23:33 | disposition home or self-care (01) ==
LOC: ER 16:55
DX: T50.7X1A Poisoning by analeptics and opioid receptor antagonists, accidental (unintentional), initial encounter (principal); I10 Essential (primary) hypertension; R51.9 Headache, unspecified; Z88.0 Allergy status to penicillin; Z88.5 Allergy status to narcotic agent; Z86.59 Personal history of other mental and behavioral disorders; Y92.9 Unspecified place or not applicable
CPT/HCPCS: 99284

== ENCOUNTER 2024-04-14 07:37 | Inpatient (IN) | payer MEDICARE, MEDICAID ==
[~2024-04-14] VITALS: Ht 170.2 cm; Wt 49.0 kg
[2024-04-14 07:39] VITALS: O2SAT 94
[2024-04-14 08:14] LABS: CHLORIDE 103 mEq/L (98-107); POTASSIUM 3.9 mEq/L (3.5-5.1); SODIUM 142 mEq/L (136-145)
[2024-04-14 08:15] LABS: CALCIUM 8.8 mg/dL (8.7-10.4); CARBON DIOXIDE 25 mEq/L (21-32)
[2024-04-14 08:20] LABS: CREATININE 0.9 mg/dL (0.6-1.3); GLUCOSE 83 mg/dL (70-105); UREA NITROGEN BLOOD 14 mg/dL (9-23)
[2024-04-14 08:30] LABS: ETHANOL BLOOD 367 mg/dL (<10)
[2024-04-14 08:34] LABS: MEAN CORPUSCULAR HEMOGLOBIN 19.9 pg (28.0-32.0); MEAN CORPUSCULAR HGB CONC 28.9 g/dL (31.0-37.0); MEAN CORPUSCULAR VOLUME 68.9 fL (80.0-94.0); MEAN PLATELET VOLUME 6.2 fl (7.4-10.4); PLATELET 363 x1000/uL (130-400); RED BLOOD CELL COUNT 2.98 mill/uL (4.7-6.1); RED CELL DISTRIBUTION WIDTH 24.9 % (11.6-14.6); WHITE BLOOD COUNT 5.1 x1000/uL (4.5-11.0)
[2024-04-14 08:44] LABS: DIFFERENTIAL COMMENT 1; HEMATOCRIT. 20.5 % (42.0-52.0); HEMOGLOBIN. 5.9 g/dL (14.0-18.0)
[2024-04-14] MEDS: LEVETIRACETAM 500MG PREMIX 100 ML IV ONE (09:00)
[2024-04-14 10:10] LABS: ANISOCYTOSIS 3+; HYPOCHROMASIA 2+; MICROCYTOSIS 3+; PLATELET ESTIMATE NORMAL
[2024-04-14] MEDS ORDERED: LEVE1000 MT (11:31)
[2024-04-14] MEDS ORDERED: ONDANSETRON HCL 4MG/2ML INJ IV PRN (14:30)
[2024-04-14] MEDS ORDERED: MAGNESIUM/ALUMINUM HYDROXIDE/SIMETHICONE 30ML UDC PO PRN (14:30)
[2024-04-14] MEDS ORDERED: GUAIFENESIN 200MG/10ML SUGAR FREE UDC PO PRN (14:30)
[2024-04-14] MEDS ORDERED: ACETAMINOPHEN 325MG TABLET PO PRN (14:30)
[2024-04-14] MEDS ORDERED: LORAZEPAM 4MG/ML INJ IV PRN (14:30)
[2024-04-14] MEDS ORDERED: NA PHOS,M-B/NA PHOS,DI-BA ENEMA 118ML PR PRN (14:30)
[2024-04-14] MEDS ORDERED: CLONIDINE 0.1MG TABLET PO PRN (14:30)
[2024-04-14] MEDS ORDERED: IPRATROPIUM/ALBUTEROL 0.5-3(2.5)MG/3ML NEB HHN PRN (14:30)
[2024-04-14] MEDS ORDERED: LORAZEPAM 2MG/ML INJ IV PRN (14:30)
[2024-04-14] MEDS ORDERED: DOCUSATE SODIUM 100MG CAPSULE PO PRN (14:30)
[2024-04-14] MEDS: PANTOPRAZOLE SODIUM 40 MG/VIAL IV SCH (15:30)
[2024-04-14] MEDS ORDERED: AMLO10TA80 PO (15:39)
[2024-04-14 16:02] LABS: INR 1.1; PROTHROMBIN TIME 12.4 sec (9.6-11.0)
[2024-04-14 16:06] LABS: IRON 18 ug/dL (65-175)
[2024-04-14 16:07] LABS: PHENYTOIN 3.1 ug/mL (10-20)
[2024-04-14 16:08] LABS: LACTATE DEHYDROGENASE 189 IU/L (120-246)
[2024-04-14 16:09] LABS: ALANINE AMINOTRANSFERASE 11 IU/L (10-49); ALBUMIN 4.9 g/dL (3.2-4.8); ASPARTATE AMINOTRANSFERASE 31 IU/L (<34); BILIRUBIN TOTAL 0.2 mg/dL (0.1-1.0); PHOSPHORUS 4.4 mg/dL (2.5-4.9); PROTEIN TOTAL 8.7 g/dL (6.0-8.3); TOTAL IRON BINDING CAPACITY 349 ug/dl (250-425)
[2024-04-14 16:18] LABS: BILIRUBIN DIRECT < 0.1 mg/dL (<=3.0)
[2024-04-14 17:45] VITALS: BP 141/78; PULSE 94; RESP 18; TEMP 36.55848; O2SAT 96
[2024-04-14 18:36] VITALS: BP 141/78; PULSE 94; RESP 18; TEMP 36.5848
[2024-04-14 19:46] LABS: HEMOGLOBIN 5.6 g/dL (14.0-18.0)
[2024-04-14 19:47] LABS: HEMATOCRIT 18.9 % (42.0-52.0)
[2024-04-14 19:48] LABS: FERRITIN 6 ng/mL (22-322); FOLIC ACID (FOLATE) SERUM 10.84 ng/mL (>5.38); VITAMIN B12 SERUM 517 pg/mL (211-911)
[2024-04-14 20:00] VITALS: BP 136/83; PULSE 94; RESP 18; TEMP 36.61404; O2SAT 100
[2024-04-14] MEDS: FOLIC ACID 1 MG, THIAMINE HCL 100 MG, MVI, ADULT NO.1 10 ML in DEXT 5%/0.9% NACL 1,000 ML IV ONE (21:16)
[2024-04-14] MEDS: LEVETIRACETAM 500MG PREMIX 100 ML IV SCH (21:16)
[2024-04-15] VITALS (16 sets, daily range): BP systolic 129–147; BP diastolic 73–88; PULSE 78–90; RESP 16–20; TEMP 35.50284–37.00296; O2SAT 98–100
[2024-04-15 06:19] LABS: CARBON DIOXIDE 26 mEq/L (21-32); CHLORIDE 104 mEq/L (98-107); POTASSIUM 3.6 mEq/L (3.5-5.1); SODIUM 138 mEq/L (136-145)
[2024-04-15 06:20] LABS: CALCIUM 8.7 mg/dL (8.7-10.4)
[2024-04-15 06:25] LABS: CREATININE 0.8 mg/dL (0.6-1.3); GLUCOSE 111 mg/dL (70-105); TRIGLYCERIDE 74 mg/dL (0-150); UREA NITROGEN BLOOD 10 mg/dL (9-23)
[2024-04-15 06:26] LABS: LDL CHOLESTEROL 49 mg/dL (5-100)
[2024-04-15 06:27] LABS: CHOLESTEROL 128 mg/dL (<200); HDL CHOLESTEROL 66 mg/dL (>55)
[2024-04-15 06:41] LABS: BASOPHILS % 0.7 % (0.0-2.0); EOSINOPHILS % 0.4 % (0.0-5.0); LYMPHOCYTES % 14.2 % (20.0-50.0); MEAN CORPUSCULAR HGB CONC 30.8 g/dL (31.0-37.0); MEAN PLATELET VOLUME 6.1 fl (7.4-10.4); MONOCYTES % 6.2 % (2.0-8.0); NEUTROPHILS % 78.5 % (40.0-76.0); PLATELET 237 x1000/uL (130-400); RED BLOOD CELL COUNT 2.43 mill/uL (4.7-6.1); RED CELL DISTRIBUTION WIDTH 26.9 % (11.6-14.6)
[2024-04-15 08:12] LABS: DIFFERENTIAL COMMENT 1
[2024-04-15 08:13] LABS: HEMATOCRIT. 16.5 % (42.0-52.0); HEMOGLOBIN. 5.1 g/dL (14.0-18.0)
[2024-04-15] MEDS: THIAMINE HCL 100MG TABLET PO SCH (08:48)
[2024-04-15] MEDS: FOLIC ACID 1MG TABLET PO SCH (08:48)
[2024-04-15] MEDS: AMLODIPINE 10MG TABLET PO SCH (08:49)
[2024-04-15 22:02] LABS: HEMATOCRIT 28.1 % (42.0-52.0)
[2024-04-16] VITALS: BP 137/79; PULSE 78; RESP 20; TEMP 37.2252; O2SAT 100
[2024-04-16] MEDS: ACETAMINOPHEN 325MG TABLET PO PRN (00:18)
[2024-04-16 04:00] VITALS: BP 131/81; PULSE 90; RESP 20; TEMP 37.11408; O2SAT 100
[2024-04-16 06:53] LABS: CHLORIDE 103 mEq/L (98-107); POTASSIUM 2.9 mEq/L (3.5-5.1); SODIUM 138 mEq/L (136-145)
[2024-04-16 06:54] LABS: CARBON DIOXIDE 25 mEq/L (21-32)
[2024-04-16 06:55] LABS: CALCIUM 8.9 mg/dL (8.7-10.4)
[2024-04-16 06:59] LABS: CREATININE 0.7 mg/dL (0.6-1.3); GLUCOSE 87 mg/dL (70-105)
[2024-04-16 07:00] LABS: UREA NITROGEN BLOOD < 5 mg/dL (9-23)
[2024-04-16 08:00] VITALS: BP_SYST 132; BP_SYST 137; BP_DIAS 67; BP_DIAS 76; PULSE 73; PULSE 83; RESP 18; RESP 20; TEMP 36.22512; TEMP 36.61404; O2SAT 96; O2SAT 97
[2024-04-16 08:08] LABS: HEMATOCRIT. 26.7 % (42.0-52.0); HEMOGLOBIN. 8.6 g/dL (14.0-18.0); MEAN CORPUSCULAR HEMOGLOBIN 23.9 pg (28.0-32.0); MEAN CORPUSCULAR HGB CONC 32.2 g/dL (31.0-37.0); MEAN CORPUSCULAR VOLUME 74.2 fL (80.0-94.0); MEAN PLATELET VOLUME 8.3 fl (7.4-10.4); PLATELET 199 x1000/uL (130-400); RED CELL DISTRIBUTION WIDTH 28.1 % (11.6-14.6); WHITE BLOOD COUNT 5.2 x1000/uL (4.5-11.0)
[2024-04-16 08:32] LABS: DIFFERENTIAL COMMENT 1
[2024-04-16] MEDS: POTASSIUM CHLORIDE 20MEQ TABLET SR PO SCH (10:36)
[2024-04-16] MEDS: MAGNESIUM 2 G PREMIX 50 ML IV NR (10:44)
[2024-04-16 12:00] VITALS: BP 127/77; PULSE 73; RESP 18; TEMP 36.6696; O2SAT 99
[2024-04-16 14:24] LABS: CLARITY URINE CLOUDY (CLEAR); COLOR URINE YELLOW (YELLOW); GLUCOSE URINE NEGATIVE (NEGATIVE); KETONES URINE TRACE (NEGATIVE); LEUKOCYTE ESTERASE URINE 1+ (NEGATIVE); NITRITE URINE NEGATIVE (NEGATIVE); OCCULT BLOOD URINE NEGATIVE (NEGATIVE); PROTEIN URINE TRACE (NEGATIVE); SPECIFIC GRAVITY URINE 1.019 (1.005-1.030)
[2024-04-16 14:32] LABS: BACTERIA URINE 3+; RBC URINE 0-2 /hpf (0-2); SQUAMOUS EPITHELIAL CELL URINE 1+ /lpf (RARE/1+); WBC URINE 25-50 /hpf (0-2); YEAST URINE NONE SEEN
[2024-04-16 14:37] LABS: ANISOCYTOSIS 2+; HYPOCHROMASIA 1+; MICROCYTOSIS 2+; PLATELET ESTIMATE NORMAL; TARGET CELLS 1+
[2024-04-16 14:42] LABS: *AMPHETAMINES SCREEN URINE NEGATIVE (NEGATIVE)
[2024-04-16 14:43] LABS: *BARBITURATES SCREEN URINE NEGATIVE (NEGATIVE); *BENZODIAZEPINES SCREEN URINE NEGATIVE (NEGATIVE); *COCAINE SCREEN URINE NEGATIVE (NEGATIVE); CANNABINOID URINE SCREEN NEGATIVE (NEGATIVE); ECSTASY MDMA SCREEN URINE NEGATIVE (NEGATIVE); METHADONE URINE SCREEN NEGATIVE (NEGATIVE); OPIATES URINE SCREEN PRESUMPTIVE POSITIVE (NEGATIVE); PHENCYCLIDINE URINE SCREEN NEGATIVE (NEGATIVE)
[2024-04-16 16:00] VITALS: BP 119/69; PULSE 85; RESP 18; TEMP 36.3918; O2SAT 100
[2024-04-16 20:00] VITALS: BP 115/76; PULSE 76; RESP 20; TEMP 36.55848; O2SAT 100
[2024-04-17] VITALS: BP 123/79; PULSE 78; RESP 20; TEMP 36.61404; O2SAT 100
[2024-04-17 04:00] VITALS: BP 112/76; PULSE 74; RESP 20; TEMP 36.44736; O2SAT 100
[2024-04-17 08:00] VITALS: BP 133/77; PULSE 75; RESP 18; TEMP 36.83628; O2SAT 97
[2024-04-17 09:41] LABS: HEMATOCRIT. 29.8 % (42.0-52.0); HEMOGLOBIN. 9.4 g/dL (14.0-18.0); MEAN CORPUSCULAR HEMOGLOBIN 23.7 pg (28.0-32.0); MEAN CORPUSCULAR HGB CONC 31.7 g/dL (31.0-37.0); MEAN CORPUSCULAR VOLUME 74.5 fL (80.0-94.0); MEAN PLATELET VOLUME 8.5 fl (7.4-10.4); PLATELET 193 x1000/uL (130-400); RED BLOOD CELL COUNT 3.99 mill/uL (4.7-6.1); RED CELL DISTRIBUTION WIDTH 28.6 % (11.6-14.6); WHITE BLOOD COUNT 5.8 x1000/uL (4.5-11.0)
[2024-04-17 10:04] LABS: DIFFERENTIAL COMMENT 1
[2024-04-17 10:22] LABS: CARBON DIOXIDE 23 mEq/L (21-32); CHLORIDE 102 mEq/L (98-107); POTASSIUM 3.4 mEq/L (3.5-5.1); SODIUM 135 mEq/L (136-145)
[2024-04-17 10:23] LABS: CALCIUM 9.4 mg/dL (8.7-10.4)
[2024-04-17 10:26] LABS: CREATININE 0.7 mg/dL (0.6-1.3); GLUCOSE 90 mg/dL (70-105)
[2024-04-17 10:28] LABS: UREA NITROGEN BLOOD 7 mg/dL (9-23)
[2024-04-17 12:00] VITALS: BP 122/78; PULSE 85; RESP 18; TEMP 36.78072; O2SAT 99
[2024-04-17 16:00] VITALS: BP 117/76; PULSE 77; RESP 18; TEMP 36.6696; O2SAT 95
[2024-04-17 20:00] VITALS: BP 128/78; PULSE 84; RESP 18; TEMP 36.61404; O2SAT 98
[2024-04-17 21:43] LABS: ANISOCYTOSIS 3+; HYPOCHROMASIA 1+; MICROCYTOSIS 2+; PLATELET ESTIMATE NORMAL
[2024-04-18] VITALS: BP 138/85; PULSE 81; RESP 18; TEMP 36.61404; O2SAT 99
[2024-04-18 04:00] VITALS: BP 145/88; PULSE 77; RESP 19; TEMP 36.50292; O2SAT 99
[2024-04-18 08:00] VITALS: BP 137/83; PULSE 78; RESP 16; TEMP 36.50292; O2SAT 98
[2024-04-18 12:00] VITALS: BP 132/86; PULSE 98; RESP 19; TEMP 36.44736; O2SAT 96
[2024-04-18] MEDS ORDERED: TOPUD PO (13:21)
== END 2024-04-18 16:10 | disposition home health service (06) | DRG 53 ==
LOC: ER 07:44 → 5WST 13:04 → 7EST 17:48
PROVIDERS: ADMIT Internal Medicine; ATTEND Internal Medicine
PROC: 30233N1 Transfusion of Nonautologous Red Blood Cells into Peripheral Vein, Percutaneous Approach (ICD-10-PCS; principal; 2024-04-14)
DX: G40.909 Epilepsy, unspecified, not intractable, without status epilepticus (principal); G92.8 Other toxic encephalopathy; D62 Acute posthemorrhagic anemia; K92.2 Gastrointestinal hemorrhage, unspecified; G96.08 Other cranial cerebrospinal fluid leak; D50.9 Iron deficiency anemia, unspecified; F10.129 Alcohol abuse with intoxication, unspecified; F10.139 Alcohol abuse with withdrawal, unspecified; I10 Essential (primary) hypertension; X58.XXXA Exposure to other specified factors, initial encounter; M19.031 Primary osteoarthritis, right wrist; S62.001A Unspecified fracture of navicular [scaphoid] bone of right wrist, initial encounter for closed fracture; Y90.8 Blood alcohol level of 240 mg/100 ml or more; Z88.0 Allergy status to penicillin; Z88.5 Allergy status to narcotic agent; Z82.49 Family history of ischemic heart disease and other diseases of the circulatory system; Z83.3 Family history of diabetes mellitus; Y93.89 Activity, other specified; Y92.89 Other specified places as the place of occurrence of the external cause; Y99.8 Other external cause status
CPT/HCPCS: 36415; 71045; 73110; 73200; 80048; 80061; 80076; 80185; 80305; 80320; 81003; 82607; 82728; 82746; 83540; 83550; 83615; 83735; 84100; 84443; 85014; 85018; 85025; 85044; 86850; 86900; 86920; 97161; 97166; 99285; J1953; J2470; J3411; J3475; J3490; J7042; P9016; G0480